=== PATIENT | male | born 2000 | race African-American/Black ===

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

== ENCOUNTER 2021-03-30 13:14 | Emergency (ER) | payer OTHER, SELFPAY ==
[2021-03-30] MEDS ORDERED: Acetaminophen 325 MG TAB ONE (14:46)
[2021-03-30] MEDS ORDERED: Ibuprofen 200 MG TAB ONE (14:46)
[2021-03-30 16:30] LABS: SARS-CoV-2 NAA Rapid Test DETECTED (NotDetected)
== END 2021-03-30 15:17 | disposition home or self-care (01) ==
LOC: ERS 13:14
DX: U07.1 COVID-19 (principal)
CPT/HCPCS: 0240U; 99283

== ENCOUNTER 2021-05-29 14:35 | Emergency (ER) | payer SELFPAY ==
[2021-05-29] MEDS ORDERED: Ketorolac Tromethamine 30 MG/ML VIAL ONE (15:53)
== END 2021-05-29 15:34 | disposition home or self-care (01) ==
LOC: ERS 14:35
DX: S39.012A Strain of muscle, fascia and tendon of lower back, initial encounter (principal); X50.0XXA Overexertion from strenuous movement or load, initial encounter
CPT/HCPCS: 96372; 99283; J1885

== ENCOUNTER 2023-02-06 19:23 | Emergency (ER) | payer SELFPAY ==
[2023-02-06] MEDS ORDERED: Cyclobenzaprine 10 MG TAB ONE (20:38)
[2023-02-06] MEDS ORDERED: Ibuprofen 200 MG TAB ONE (20:38)
== END 2023-02-06 20:46 | disposition home or self-care (01) ==
LOC: ERS 19:23
DX: M54.50 Low back pain, unspecified (principal)
CPT/HCPCS: 99283